=== PATIENT | male | born 1975 | race Caucasian/White ===

== ENCOUNTER 2017-04-02 11:49 | Emergency (ER) | payer OTHER | END 2017-04-02 13:45 | disposition home or self-care (01) | LOC: CFTX 11:49 → CED 11:49 → CFTX 12:39 | DX: R07.81 Pleurodynia (principal); Z90.49 Acquired absence of other specified parts of digestive tract; Z88.1 Allergy status to other antibiotic agents | CPT/HCPCS: 71101; 99284 ==